=== PATIENT | female | born 1965 | race Caucasian/White ===

== ENCOUNTER 2022-08-18 13:52 | Outpatient (REF) | payer OTHER, SELFPAY ==
--- NOTE | ~2022-08-18 | XR_ITS ---
EXAMINATION: XR ABDOMEN KUB CLINICAL INDICATION: Abdominal pain COMPARISON: None TECHNIQUE: AP view of the abdomen. FINDINGS: The bowel gas pattern is normal with no evidence of ileus or obstruction. No unusual soft tissue calcifications are noted. The bones are unremarkable. XR/XR KUB IMPRESSION: Unremarkable examination.
[2022-08-18 16:30] LABS: MANUAL DIFF FLAG NO
[2022-08-18 16:35] LABS: Basophils Absolute Auto 0.1 X10*3/uL (0.0-0.2); Basophils Percent Auto 0.6 % (0-2); Eosinophils Absolute Auto 0.2 X10*3/uL (0.0-0.4); Eosinophils Percent Auto 2.2 % (0-4); Hematocrit 39.4 % (37.0-47.0); Hemoglobin 12.4 g/dl (12.0-16.0); Imm Gran Abs Auto 0.03 X10*3/uL (0.00-0.03); Imm Gran Pct Auto 0.3 % (0.0-0.4); Lymphocytes Percent Auto 19.7 % (20-40); Mean Corpuscular HGB Conc 31.5 g/dl (31.0-35.0); Mean Corpuscular Hemoglobin 25.6 pg (27.0-33.0); Mean Corpuscular Volume 81.4 fL (80.0-98.0); Mean Platelet Volume 9.5 fL (9.4-12.3); Monocytes Absolute Auto 0.7 X10*3/uL (0.1-1.2); Monocytes Percent Auto 7.1 % (2-11); Neutrophils Absolute Auto 7.3 x10*3/uL (2.0-8.3); Neutrophils Percent Auto 70.1 % (45-73); Platelet Count 426 X10*3/uL (160-400); Red Blood Count 4.84 X10*6/uL (4.20-5.50); Red Cell Distribution Width 15.1 % (11.0-16.0); White Blood Count 10.4 X10*3/uL (4.8-10.8)
[2022-08-18 16:46] LABS: Alanine Aminotransferase 11 U/L (0-31); Albumin Level 3.7 g/dL (3.5-5.0); Alkaline Phosphatase 110 U/L (39-117); Anion Gap 15 (12-20); Aspartate Amino Transferase 18 U/L (5-31); Bilirubin Direct 0.2 mg/dL (0.0-0.5); Bilirubin Total 0.5 mg/dL (0.0-1.0); Blood Urea Nitrogen 7 mg/dL (9-16); Carbon Dioxide 25 mmol/L (22-29); Chloride 99 mmol/L (96-108); Estimated Glomerular Filt Rate > 60; Glucose Random 107 mg/dL (60-115); Potassium 4.1 mmol/L (3.3-5.1); Sodium 135 mmol/L (135-145); Total Protein 6.6 g/dL (6.5-8.0)
== END 2022-08-18 13:53 | disposition home or self-care (01) ==
LOC: HO.HMGCX 13:52
PROVIDERS: Visit Provider Nurse Practitioner Family
DX: R10.9 Unspecified abdominal pain (principal)
CPT/HCPCS: 36415; 74018; 80048; 80076; 85025

== ENCOUNTER 2022-08-27 17:41 | Observation (INO) | payer OTHER, SELFPAY ==
--- NOTE | ~2022-08-27 | US_ITS ---
EXAMINATION: ULTRASOUND-GUIDED PARACENTESIS CLINICAL INFORMATION: Ascites. Peritoneal disease. COMPARISON: Previous CT of the abdomen and pelvis 08/28/2022 and MRI from earlier the same day TECHNIQUE: Procedure and risks and benefits including bleeding, infection and low blood pressure were discussed with the patient and informed consent was obtained. The right lower quadrant was prepped and draped in the usual sterile fashion. The skin and soft tissues were anesthetized with 1% lidocaine plain. Using ultrasound guidance and a 5 Amharic rapid centesis catheter, access to the ascitic fluid was obtained. 3.3 L of clear yellow fluid was removed. Diagnostic specimen was sent for cytology. FINDINGS: There is a moderate amount of ascites. US/US paracentesis abd w/image IMPRESSION: Ultrasound-guided paracentesis.
--- NOTE | ~2022-08-27 | CT_ITS ---
EXAMINATION: CT ABDOMEN AND PELVIS WITH CONTRAST CLINICAL INFORMATION: Left lower quadrant pain. Rule out diverticulitis. COMPARISON: None TECHNIQUE: Multidetector volumetric images were obtained from the superior aspect of the liver through the pubic symphysis following administration of 60 mL of Omnipaque 350 intravenous contrast. Sagittal and coronal reformatted images were obtained on the technologist's workstation. Oral contrast: No This CT examination was performed using dose optimization techniques as appropriate, variously including the following: *Automated exposure control *Adjustment of mA and/or kV according to patient size (this includes techniques or standardized protocols for targeted exams where dose is matched to indication/reason for exam; i.e. extremities or head) *Use of iterative reconstruction technique DLP: 753 mGy-cm FINDINGS: LUNG BASES: Partial visualization is made of a small left pleural effusion and mild left base atelectasis no suspicious osseous lesions noted.. Partial visualization is made of a small pericardial fluid collection measuring 5 mm in width. LIVER, GALLBLADDER, AND BILIARY TREE: The hepatic capsular contour and size are normal in appearance. No focal lesions of the liver identified. The gallbladder is unremarkable with no evidence of radiopaque gallstones, gallbladder wall thickening, or obvious pericholecystic inflammatory changes. PANCREAS: Unremarkable. SPLEEN: Unremarkable. ADRENAL GLANDS: A 4 mm low-density nodule (5 Hounsfield units) is associated with the right adrenal gland and is most consistent with a benign adenoma requiring no additional imaging follow-up. KIDNEYS AND URETERS: The kidneys are normal in size, shape, and attenuation. No hydronephrosis, , or calculi seen. No perinephric stranding. Minimal prominence of the left ureter to maximum width of 4 mm is present and may represent mild distention related to marked distention of the urinary bladder. BLADDER: Marked distention. GASTROINTESTINAL TRACT: Moderate ascites is identified in all 4 abdominal quadrants. Multifocal nodularity and thickening of the omentum is present and is suspicious for omental carcinomatosis. No intestinal dilatation or mural thickening noted. Nodular foci are noted along the peritoneal margins (for example series 3 image 31) within the left upper abdominal quadrant) suspicious for peritoneal carcinomatosis. The particular lesion noted in the left upper abdominal quadrant indicated by the series/image above measures 2.7 cm in diameter. ABDOMINAL WALL: No significant hernia is appreciated. LYMPH NODES: Normal. VASCULAR: Unremarkable. PELVIC VISCERA: The ovaries are indistinctly visualized. Soft tissue density is present in the right adnexal region contiguous with apparent omental carcinomatosis obscuring visualization of the margins of the right ovary. No lesions of the uterus identified. Left ovary is not discretely visualized. Soft tissue density over an approximate 3 cm diameter region is present in the left adnexal region. OSSEOUS STRUCTURES: Unremarkable. CT/CT abdomen pelvis w IV con IMPRESSION: *Findings suspicious for ovarian cancer. Omental and peritoneal carcinomatosis is present along with ascites which is suspicious for malignant ascites. Omental carcinomatosis extends contiguously to the right adnexal region obscuring visualization of the right ovary but is suspicious for a right ovarian neoplasm. The left ovary is not well visualized and soft tissue density is present in the left adnexal region over an approximate 3 cm diameter region which could represent tumor. A peritoneal metastasis measuring 2.7 cm is present in the left upper abdominal quadrant which may therefore meet criteria for stage IIIc staging. As clinically indicated, consider further evaluation with pelvic MRI to more specifically assess the ovaries which are not distinctly visualized on the current examination. *Partially visualized small left pleural effusion and left lower lobe atelectasis. *Partially visualized small pericardial effusion measuring 5 mm in width.
--- NOTE | ~2022-08-27 | XR_ITS ---
EXAMINATION: XR CHEST CLINICAL INFORMATION: Ovarian cancer, evaluate for metastases. COMPARISON: CT scan of the abdomen and pelvis 08/28/2022. Chest x-ray August 2019. TECHNIQUE: Frontal view of the chest was obtained. FINDINGS: There is opacification of the left base consistent with pleural effusion and compressive atelectasis as seen on prior CT. The lungs are otherwise clear. The cardiomediastinal silhouette is unremarkable. The bone and soft tissues are unremarkable. XR/XR chest 1V IMPRESSION: Left pleural effusion and left basilar opacity consistent with compressive atelectasis, unchanged compared with the recent CT 08/28/2022. The lungs are otherwise clear.
--- NOTE | ~2022-08-27 | MR_ITS ---
EXAMINATION: MR PELVIS WITHOUT AND WITH CONTRAST CLINICAL INFORMATION: Rule out ovarian cancer. COMPARISON: Previous CT of the abdomen and pelvis 08/28/2022. TECHNIQUE: Sagittal, axial and coronal sequences through the pelvis with and without contrast. The patient received 7.5 mL intravenous Gadavist contrast. FINDINGS: The uterus measures 6 x 2 x 3 cm in sagittal AP and transverse dimension. No focal uterine lesion. Endometrial thickness is normal measuring 2 mm. The junctional zone does not appear thickened. The cervix is normal. Both adnexa appear abnormal. There is question of identification of the right in the high right pelvis posterior to the cecum and anterior to the right psoas muscle, for example axial T2 image 5 series 6 and coronal T2 image 13 series 7. There is question identification of the left adnexa in the left lateral pelvis adjacent to the sidewall axial T2 image 11 series 6 and coronal T2 image 16 series 7. The bladder is normal. There is a moderate to large amount of ascites. There is extensive peritoneal disease with large solid enhancing peritoneal masses and some cystic areas. This involves the greater omentum, extends into the bilateral lower quadrants and pelvis. This is seen in the anterior and posterior cul-de-sac and bilateral pelvic sidewall left greater than right. There is peritoneal disease involving the sigmoid colon in the pelvis. There are no dilated loops of bowel to suggest obstruction. There is mild diverticulosis of the colon. No hernia. No hernia. No adenopathy. Vascular structures are normal. Bright T1 and T2 sequence lesion in the S1 vertebral body, question representing a hemangioma. No other focal bone lesion. MR/MR pelvis wo/w con IMPRESSION: Extensive peritoneal disease in the lower abdomen and pelvis and moderate to large amount of ascites suggestive of malignancy. This most likely represents ovarian or primary peritoneal cancer. Omental mass would be amenable to percutaneous biopsy clinically indicated.
--- NOTE | 2022-08-27 18:31 | ED_ITS ---
HPI - Abdominal Pain General Chief Complaint: Abdominal Pain <DIANE Miller Last Filed: 08/28/22 14:19> Stated Complaint: Abdominal pain <DIANE Miller - Last Filed: 08/28/22 14:19> Time Seen by Provider: 08/27/22 23:17 <DIANE Miller - Last Filed: 08/28/22 14:19> Source: patient and old records reviewed <Ashely Gordon DO - Last Filed: 08/28/22 02:30> Mode of arrival: ambulatory <Ashely Gordon DO - Last Filed: 08/28/22 02:30> Limitations: no limitations <Ashely Gordon DO - Last Filed: 08/28/22 02:30> History of Present Illness HPI narrative: abdominal pain for over 10 days worsening no response to cipro starting 08/18 - now cannot walk, loose mucousy stools, no travel, food exposure, no previous antibiotics, has had normal colonoscopy in the past, this has never happened before. She notes when she walks it hurts so bad she cannot even stand up straight. She recently lost 26lbs but thinks it was due to her trulicity <Ashely Gordon DO - Last Filed: 08/28/22 02:30> MD elicited complaint: abdominal pain <Ashely Gordon DO - Last Filed: 08/28/22 02:30> Pertinent past history: none <Ashely Gordon DO - Last Filed: 08/28/22 02:30> Onset (ago): day(s) (10+) <Ashely Gordon DO - Last Filed: 08/28/22 02:30> Pain Consistency: constant <Ashely Gordon DO - Last Filed: 08/28/22 02:30> Location: diffuse <Ashely Gordon DO - Last Filed: 08/28/22 02:30> Severity: severe <Ashely Gordon DO - Last Filed: 08/28/22 02:30> Quality: stabbing <Ashely Gordon DO - Last Filed: 08/28/22 02:30> Radiation: none <Ashely Gordon DO - Last Filed: 08/28/22 02:30> Migration to: no migration <Ashely Gordon DO - Last Filed: 08/28/22 02:30> Exacerbating factors: movement <Ashely Gordon DO - Last Filed: 08/28/22 02:30> Relieving factors: nothing <Ashely Gordon DO - Last Filed: 08/28/22 02:30> Associated symptoms: nausea and diarrhea <Ashely Gordon DO - Last Filed: 08/28/22 02:30> Treatments prior to arrival: other (was on cipro no response) <Ashely Gordon DO - Last Filed: 08/28/22 02:30> Related Data Home Medications: Home Medications Medication Instructions Recorded Confirmed albuterol sulfate 90 mcg/actuation 2 puff inhalation Q4H PRN Wheezing 08/18/22 08/28/22 aerosol inhaler dulaglutide 0.75 mg/0.5 mL 0.75 mg subcut GRANDE@1800 08/18/22 08/28/22 subcutaneous pen injector (Trulicity) <DIANE Miller Last Filed: 08/28/22 14:19> Allergies/Adverse Reactions: Allergies Allergy/AdvReac Type Severity Reaction Status Date / Time azithromycin Allergy Mild Shortness Verified 08/18/22 13:02 of Breath <DIANE Miller Last Filed: 08/28/22 14:19> Review of Systems Review of Systems Constitutional : pos Weight loss, No Fever, No Chills ENT/Mouth : No sore throat, No Rhinorrhea Eyes: No Swelling, No Redness Cardiovascular : No Chest Pain, No SOB, NoEdema Respiratory : No Cough, No Sputum, No Wheezing Gastrointestinal : Positive Nausea, no Vomiting, positive Diarrhea, positive abdominal Pain, No Hematochezia, No Melena Genitourinary : No Dysuria, No Urinary Frequency, No Hematuria, No Urgency Musculoskeletal : No joint pain, No Myalgias, No Joint Swelling Skin : No Skin Lesions, No rash Neuro : No Weakness, No Numbness, No Dizziness, No Headache Psych : No Anxiety/Panic, No Depression Heme/Lymph: No Bruising, No Lymphadenopathy Endocrine : No Polyuria, No Polydipsia All other systems reviewed and are negative. <Ashely Gordon DO - Last Filed: 08/28/22 02:30> [facility] Past Medical History Attestation statement: The following information was validated with the patient. <Ashely Gordon DO - Last Filed: 08/28/22 02:30> Medical History: Medical History Asthma Diabetes <DIANE Miller - Last Filed: 08/28/22 14:19> Surgical History: Surgical History S/P appendectomy <DIANE Miller - Last Filed: 08/28/22 14:19> Social History Social History: Social History Patient Tobacco Use Status: Never used Tobacco Smoked in Last 30 Days: No Use of substances other than those prescribed or required for medical reasons: No Advance Directives: Yes Advance Directives Information Provided: No Advance Directives on File: No <DIANE Miller - Last Filed: 08/28/22 14:19> Physical Exam ED Vital Signs: Vital Signs - 24 hr 08/27/22 18:32 08/28/22 00:00 Temperature 98.1 F 98.2 F Pulse Rate 119 H 104 H Respiratory Rate 18 13 Blood Pressure 142/79 H 109/56 L Pulse Oximetry 97 94 Oxygen Delivery Method Room Air Room Air BMI result Body Mass Index 28.3 <DIANE Miller - Last Filed: 08/28/22 14:19> Vital Signs - 24 hr 08/27/22 18:32 08/28/22 00:00 Temperature 98.1 F 98.2 F Pulse Rate 119 H 104 H Respiratory Rate 18 13 Blood Pressure 142/79 H 109/56 L Pulse Oximetry 97 94 Oxygen Delivery Method Room Air Room Air BMI result Body Mass Index 28.3 <Ashely EvanDO - Last Filed: 08/28/22 02:30> Appearance: Alert. Oriented X3. No acute distress. Eyes: Pupils equal, round and reactive to light. ENT: Pharynx normal. Neck: Normal inspection. Neck supple. CVS: Normal heart rate and rhythm. Pulses normal. Respiratory: No respiratory distress. Breath sounds normal. Abdomen: Soft but mild distention, no rebound or guarding, moderate ttp in lower abdomen Skin: Skin warm and dry. Normal skin color. Normal skin turgor. Extremities: No lower extremity edema. No calf ttp Neuro: Oriented X 3. No motor deficit. No sensory deficit. <Ashely Gordon DO - Last Filed: 08/28/22 02:30> Course Course Course Narrative: RME 56 year old female hx of asthma, diabetes, gerd presents to the ED w/ complaints of LLQ pain, nausea x1 week. Was seen on [facility] walk in last week. PE: pain throughout abd in all 4 quadrants worse in LLQ, w/ normal BS. Plan- labs, urine, scan <DIANE Miller - Last Filed: 08/28/22 14:19> Reevaluation(s) Reevaluation #1: I went to tell the patient about the CT scan and she states she was not surprised and in fact asked me if it was cancer as she has not been feeling well and just new something was off with her body. I answered all her questions as best I could and repeated her pain medications. no urinary symptoms will wait til culture <DO Juan Carlos Alamo Last Filed: 08/28/22 02:30> Medical Decision Making Medical Decision Making MDM Narrative: 56 yo female with hx of DM, asthma here with c/o lower abdominal pain on cipro for possible colitis starting 08/18 she notes nausea, worsening pain and distention at this time will need labs, IVF, IV morphine for pain - concern is for colitis, diverticulitis/abscess. CT scan for infection/obstruction ordered. Likely admit. Dispo per results and findings. <DO Juan Carlos Alamo Last Filed: 08/28/22 02:30> Differential Diagnoses: Differential diagnosis (diverticulitis, colitis, abscess, SBO, renal colic, cystitis, mass) <DO Juan Carlos Alamo Last Filed: 08/28/22 02:30> Consideration of admission/observation: Consideration of Admission/Observation (will admit the patient for pain control and possible pelvic MRI - consult in AM with oncology. Patient still with pain repeat morphine ordered) <DO Juan Carlos Alamo Last Filed: 08/28/22 02:30> Discussion of management with other physician/healthcare provider/other source (e.g., hospitalist, hearing consultant, behavioral health): Discussion w/other physician/healthcare provider Management of the patient was discussed with: Hospitalist My interpretation is will admit for pain control and possible consults given new diagnosis <Ashely Gordon DO - Last Filed: 08/28/22 02:30> Lab Attestation: I reviewed the patient's lab results. <Ahsely Gordon DO - Last Filed: 08/28/22 02:30> Independent interpretation of EKG, rhythm strip, radiology study: Independent interp EKG,rhythm strip, radiology study I performed an independent interpretation of the: CT Scan My interpretation is ascites noted on initial review and L sided pleural effusion <Ashely Gordon, DO - Last Filed: 08/28/22 02:30> Non-ED record review: Review of External (Non-ED) Record External record reviewed:: Office record, Outpatient record, Prior outpatient labs and Prior outpatient radiology <Ashely Gordon DO - Last Filed: 08/28/22 02:30> Medications Administered Generic Name Dose Route Start Last Admin Trade Name Freq PRN Reason Stop Dose Admin Enoxaparin Sodium 40 mg 08/28/22 09:00 08/28/22 10:12 Enoxaparin Sodium 40 Mg/0.4 Ml Syringe SUBCUT 40 mg Q24H JAY JAY Administration Lactated Ringer's 1,000 mls @ 100 mls/hr 08/28/22 02:00 08/28/22 13:12 Lr IVCONT 100 mls/hr .Q10H JAY JAY Administration Ceftriaxone Sodium 1 gm/ 50 mls @ 100 mls/hr 08/28/22 03:45 08/28/22 04:53 Sodium Chloride IV Infused Q24H JAY JAY Infusion Insulin Human Lispro 0 unit 08/28/22 07:30 08/28/22 12:47 Insulin Lispro 100 Unit/Ml 3 Ml Vial SUBCUT Not Given QIDACHS JAY JAY Protocol Morphine Sulfate 1 mg 08/28/22 11:45 08/28/22 12:40 Morphine Sulfate 2 Mg/Ml Cartridge IVPUSH 1 mg Q4H PRN Administration Pain, Mild (Pain Scale 1-3) Protocol Sodium Chloride 3 ml 08/28/22 08:00 08/28/22 07:58 0.9 % Sodium Chloride Flush 3 Ml Syringe IVFLUSH Not Given QSHIFT JAY JAY Discontinued Medications Generic Name Dose Route Start Last Admin Trade Name Freq PRN Reason Stop Dose Admin Hydromorphone HCl 0.5 mg 08/28/22 05:08 08/28/22 05:22 Hydromorphone Hcl 0.5 Mg/0.5 Ml Syringe IVPUSH 08/28/22 05:09 0.5 mg ONCE ONE Administration Protocol Lactated Ringer's 1,000 mls @ 999 mls/hr 08/27/22 23:30 08/28/22 02:54 Lr IV 08/28/22 00:30 Infused .Q1H1M JAY JAY Infusion Iohexol 85 ml 08/28/22 00:52 08/28/22 00:52 Iohexol 350 Mg/Ml 100 Ml Infus..Btl IV 08/28/22 00:53 85 ml ONCE ONE Administration Morphine Sulfate 4 mg 08/27/22 23:27 08/27/22 23:55 Morphine Sulfate 4 Mg/Ml Cartridge IVPUSH 08/27/22 23:28 4 mg ONCE ONE Administration Protocol Morphine Sulfate 4 mg 08/28/22 01:49 08/28/22 02:35 Morphine Sulfate 4 Mg/Ml Cartridge IVPUSH 08/28/22 01:50 4 mg ONCE ONE Administration Protocol Ondansetron HCl 4 mg 08/27/22 23:27 08/27/22 23:55 Ondansetron Hcl 4 Mg/2 Ml Vial IVPUSH 08/27/22 23:28 4 mg ONCE ONE Administration <DIANE Miller - Last Filed: 08/28/22 14:19> Medications Administered Generic Name Dose Route Start Last Admin Trade Name Freq PRN Reason Stop Dose Admin Enoxaparin Sodium 40 mg 08/28/22 09:00 08/28/22 10:12 Enoxaparin Sodium 40 Mg/0.4 Ml Syringe SUBCUT 40 mg Q24H JAY JAY Administration Lactated Ringer's 1,000 mls @ 100 mls/hr 08/28/22 02:00 08/28/22 13:12 Lr IVCONT 100 mls/hr .Q10H JAY JAY Administration Ceftriaxone Sodium 1 gm/ 50 mls @ 100 mls/hr 08/28/22 03:45 08/28/22 04:53 Sodium Chloride IV Infused Q24H JAY JAY Infusion Insulin Human Lispro 0 unit 08/28/22 07:30 08/28/22 12:47 Insulin Lispro 100 Unit/Ml 3 Ml Vial SUBCUT Not Given QIDACHS [facility] Protocol Morphine Sulfate 1 mg 08/28/22 11:45 08/28/22 12:40 Morphine Sulfate 2 Mg/Ml Cartridge IVPUSH 1 mg Q4H PRN Administration Pain, Mild (Pain Scale 1-3) Protocol Sodium Chloride 3 ml 08/28/22 08:00 08/28/22 07:58 0.9 % Sodium Chloride Flush 3 Ml Syringe IVFLUSH Not Given QSHIFT [facility] Discontinued Medications Generic Name Dose Route Start Last Admin Trade Name Freq PRN Reason Stop Dose Admin Hydromorphone HCl 0.5 mg 08/28/22 05:08 08/28/22 05:22 Hydromorphone Hcl 0.5 Mg/0.5 Ml Syringe IVPUSH 08/28/22 05:09 0.5 mg ONCE ONE Administration Protocol Lactated Ringer's 1,000 mls @ 999 mls/hr 08/27/22 23:30 08/28/22 02:54 Lr IV 08/28/22 00:30 Infused .Q1H1M [facility] Infusion Iohexol 85 ml 08/28/22 00:52 08/28/22 00:52 Iohexol 350 Mg/Ml 100 Ml Infus..Btl IV 08/28/22 00:53 85 ml ONCE ONE Administration Morphine Sulfate 4 mg 08/27/22 23:27 08/27/22 23:55 Morphine Sulfate 4 Mg/Ml Cartridge IVPUSH 08/27/22 23:28 4 mg ONCE ONE Administration Protocol Morphine Sulfate 4 mg 08/28/22 01:49 08/28/22 02:35 Morphine Sulfate 4 Mg/Ml Cartridge IVPUSH 08/28/22 01:50 4 mg ONCE ONE Administration Protocol Ondansetron HCl 4 mg 08/27/22 23:27 08/27/22 23:55 Ondansetron Hcl 4 Mg/2 Ml Vial IVPUSH 08/27/22 23:28 4 mg ONCE ONE Administration IV morphine for pain <Ashely Gordon DO - Last Filed: 08/28/22 02:30> Discharge Plan Discharge Clinical Impression: Peritoneal carcinomatosis Abdominal pain Qualifiers: Abdominal location: generalized Qualified Code(s): R10.84 - Generalized abdominal pain <DIANE Miller - Last Filed: 08/28/22 14:19> Patient Disposition: Admitted As Inpatient <DIANE Miller - Last Filed: 08/28/22 14:19>
[2022-08-27 18:32] VITALS: BP 142/79; PULSE 119; RESP 18; TEMP 36.7; O2SAT 97; BMI 28.3
[2022-08-27 18:51] LABS: MANUAL DIFF FLAG NO
[2022-08-27 18:57] LABS: Appearance Urine Clear; Color Urine Yellow; Glucose Urine UA Negative (Negative); Leukocyte Esterase Urine Moderate (2+) (Negative); Nitrite Urine Negative (Negative); UMIC TRIGGER UACC YES; Urine Blood Negative (Negative); Urine Ketones 40 mg/dL (Negative); Urine Protein Trace mg/dL (Neg-Trace)
[2022-08-27 18:57] LABS: Basophils Absolute Auto 0.1 X10*3/uL (0.0-0.2); Basophils Percent Auto 0.5 % (0-2); Eosinophils Absolute Auto 0.2 X10*3/uL (0.0-0.4); Eosinophils Percent Auto 1.5 % (0-4); Hematocrit 36.8 % (37.0-47.0); Hemoglobin 11.9 g/dl (12.0-16.0); Imm Gran Abs Auto 0.05 X10*3/uL (0.00-0.03); Imm Gran Pct Auto 0.4 % (0.0-0.4); Lymphocytes Absolute Auto 2.1 X10*3/uL (1.2-4.9); Lymphocytes Percent Auto 15.6 % (20-40); Mean Corpuscular HGB Conc 32.3 g/dl (31.0-35.0); Mean Corpuscular Hemoglobin 25.2 pg (27.0-33.0); Mean Platelet Volume 8.7 fL (9.4-12.3); Monocytes Absolute Auto 1.1 X10*3/uL (0.1-1.2); Monocytes Percent Auto 7.8 % (2-11); Neutrophils Absolute Auto 10.1 x10*3/uL (2.0-8.3); Neutrophils Percent Auto 74.2 % (45-73); Platelet Count 420 X10*3/uL (160-400); Red Blood Count 4.72 X10*6/uL (4.20-5.50); Red Cell Distribution Width 15.1 % (11.0-16.0); White Blood Count 13.6 X10*3/uL (4.8-10.8)
[2022-08-27 19:05] LABS: Bacteria Urine 1+ (None Seen); Hyaline Casts Urine 0-2 /LPF (0-2); RBC Urine 0-2 /HPF (0-2); UACC Culture Trigger YES; WBC Urine 21-50 /HPF (0-5)
[2022-08-27 19:11] LABS: Alanine Aminotransferase 11 U/L (0-31); Albumin Level 3.4 g/dL (3.5-5.0); Alkaline Phosphatase 106 U/L (39-117); Anion Gap 13 (12-20); Aspartate Amino Transferase 18 U/L (5-31); Bilirubin Total 0.7 mg/dL (0.0-1.0); Blood Urea Nitrogen 8 mg/dL (9-16); Calcium 8.5 mg/dL (8.4-10.2); Carbon Dioxide 25 mmol/L (22-29); Chloride 96 mmol/L (96-108); Creatinine Clr Calc Pharmacy 84.6; Estimated Glomerular Filt Rate > 60; Glucose Random 116 mg/dL (60-115); Potassium 3.9 mmol/L (3.3-5.1); Sodium 130 mmol/L (135-145); Total Protein 6.1 g/dL (6.5-8.0)
[2022-08-27 19:12] LABS: Lipase 16 U/L (8-78)
[2022-08-27] MEDS: ondansetron HCL 4 MG/2 ML VIAL IVPUSH (23:55)
[2022-08-27] MEDS: Morphine Sulfate 4 MG/ML CARTRIDGE IVPUSH (23:55)
[2022-08-28] VITALS (8 sets, daily range): BP systolic 102–121; BP diastolic 56–66; PULSE 88–109; RESP 13–18; TEMP 36.1–36.8; O2SAT 93–98
[2022-08-28 00:03] LABS: Lactic Acid 0.8 mmol/L (0.5-2.0)
[2022-08-28] MEDS: Lactated Ringers 1,000 ML 999 ML IV (00:06)
[2022-08-28] MEDS: iohexoL 350 MG/ML 100 ML INFUS..BTL 85 ML IV (00:52)
--- NOTE | 2022-08-28 02:00 | PC.NURSE ---
Assumed care of patient.
--- NOTE | 2022-08-28 02:16 | PC.NURSE ---
Patient resting quietly while watching tv. No apparent distress.
[2022-08-28] MEDS: Morphine Sulfate 4 MG/ML CARTRIDGE IVPUSH (02:35)
[2022-08-28] MEDS: Lactated Ringers 1,000 ML 100 ML IVCONT ×2 (02:35→13:12)
[2022-08-28 02:59] LABS: COVID-19 Test Negative (Negative); IDNOW Serial# BCCEAD1C
--- NOTE | 2022-08-28 03:34 | PM.IMHP ---
History of Present Illness Date of Service: 08/28/22 Chief Complaint: Abdominal pain This is a 56-year-old female with pertinent history of gsb-kzkyxsb-pjrvywiyy diabetes mellitus, asthma presents to the emergency department for evaluation of abdominal discomfort. Patient states her abdominal pain is generalized and started about 2 weeks ago. Patient states she has had reduced p.o. intake and difficulty with ambulation due to the pain. Endorses associated nausea and nonbloody emesis. No relieving factors. Also lost 26 lb in the last 4 months. No personal history of cancer. No tobacco smoking. Does endorse urinary hesitancy. She denies fever, chills, chest discomfort, palpitations, shortness of breath, changes in bowel habits. In the emergency department, imaging concerning for ovarian cancer with omental and peritoneal carcinomatosis. Review of Systems Constitutional: Constitutional: Reports fatigue, Reports lethargy, Reports malaise and Reports poor appetite Cardiovascular: Cardiovascular: Reports no additional cardiovascular complaints Respiratory: Respiratory: Reports no additional respiratory complaints Gastrointestinal: Gastrointestinal: Reports abdominal pain, Reports bloating, Reports early satiety and Reports nausea Genitourinary: Genitourinary: Reports urinary hesitancy Endocrine: Endocrine: Reports fatigue [facility] Medical History Asthma Diabetes Functional capacity: independent ambulation Pertinent family history: Breast cancer in sister Surgical History S/P appendectomy Social History Patient Tobacco Use Status: Never used Tobacco Smoked in Last 30 Days: No Use of substances other than those prescribed or required for medical reasons: No Advance Directives: Yes Advance Directives Information Provided: No Advance Directives on File: No Meds Allergies Allergy/AdvReac Type Severity Reaction Status Date / Time azithromycin Allergy Mild Shortness Verified 08/18/22 13:02 of Breath Active Medications: Current Medications Acetaminophen (Acetaminophen 325 Mg Tablet) 650 mg PO Q6H PRN PRN Reason: Pain, Mild (Pain Scale 1-3) Enoxaparin Sodium (Enoxaparin Sodium 40 Mg/0.4 Ml Syringe) 40 mg SUBCUT Q24H [facility] Lactated Ringer's (Lr) 1,000 mls @ 100 mls/hr IVCONT .Q10H [facility] Last Admin: 08/28/22 02:35 Dose: 100 mls/hr Melatonin (Melatonin 3 Mg Tablet) 6 mg PO BEDTIME PRN PRN Reason: Insomnia Ondansetron HCl (Ondansetron Hcl 4 Mg/2 Ml Vial) 4 mg IVPUSH Q8H PRN PRN Reason: Nausea and Vomiting Pharmacy Consult (Consult Rx Perform Med Rec) 1 each MISCELLANE ONCE PRN PRN Reason: Consult order Sodium Chloride (0.9 % Sodium Chloride Flush 3 Ml Syringe) 3 ml IVFLUSH QSHIFT [facility] Home Medications Medication Instructions Recorded Confirmed Last Taken Type albuterol sulfate 90 mcg/actuation 0 mcg inhalation 08/18/22 Unknown History aerosol inhaler dulaglutide 0.75 mg/0.5 mL 0.75 mg subcut QWEEK 08/18/22 Unknown [facility] Physical Exam Vital Signs and Narrative: Vital Signs: Last Vital Signs Temp 98.2 F 08/28/22 00:00 Pulse 104 H 08/28/22 00:00 Resp 13 08/28/22 00:00 BP 109/56 L 08/28/22 00:00 Pulse Ox 94 08/28/22 00:00 O2 Del Method 08/28/22 00:00 BMI result Body Mass Index 28.3 Middle-aged female lying in bed in no distress Neck supple, no JVD Tachycardic with regular rhythm, S1-S2 heard Regular breath sounds bilaterally, no wheezing or crackles appreciated Abdomen distended with generalized tenderness with deep palpation, no guarding, no rigidity, no rebound tenderness Patient is awake, alert and oriented to self, place, time and person ; no focal motor deficit Psych: Normal mood No pedal edema Results Labs CBC and Chem 7: 08/27/22 18:45 08/27/22 18:45 Labs: Laboratory Results - last 24 hr 08/27/22 08/27/22 08/27/22 18:45 18:45 18:45 MCV 78.0 L MCH 25.2 L MCHC 32.3 RDW 15.1 Plt Count 420 H MPV 8.7 L Immature Gran % (Auto) 0.4 Neut % (Auto) 74.2 H Lymph % (Auto) 15.6 L [place] % (Auto) 7.8 Eos % (Auto) 1.5 Baso % (Auto) 0.5 Lymph # (Auto) 2.1 [place] # (Auto) 1.1 Eos # (Auto) 0.2 Baso # (Auto) 0.1 Abs Immat Gran (auto) 0.05 H Absolute Neuts (auto) 10.1 H Absolute Nucleated RBC 0.000 Nucleated RBC % (auto) 0.0 Anion Gap 13 Estim Creat Clear Calc 84.6 Estimated GFR > 60 Random Glucose 116 H Lactic Acid Calcium 8.5 Total Bilirubin 0.7 AST 18 ALT 11 Alkaline Phosphatase 106 Total Protein 6.1 L Albumin 3.4 L Lipase 16 Urine Color Urine Appearance Urine pH Ur Specific [place] Urine Protein Urine Glucose (UA) Urine Ketones Urine Blood Urine Nitrite Ur Leukocyte Esterase Urine RBC Urine WBC Ur Squamous Epith Cells Urine Bacteria Hyaline Casts COVID-19 (TRACY) COVID-19 Clin Com 08/27/22 08/27/22 08/28/22 18:46 23:47 02:39 MCV MCH MCHC RDW Plt Count MPV Immature Gran % (Auto) Neut % (Auto) Lymph % (Auto) [place] % (Auto) Eos % (Auto) Baso % (Auto) Lymph # (Auto) [place] # (Auto) Eos # (Auto) Baso # (Auto) Abs Immat Gran (auto) Absolute Neuts (auto) Absolute Nucleated RBC Nucleated RBC % (auto) Anion Gap Estim Creat Clear Calc Estimated GFR Random Glucose Lactic Acid 0.8 Calcium Total Bilirubin AST ALT Alkaline Phosphatase Total Protein Albumin Lipase Urine Color Yellow Urine Appearance Clear Urine pH 6.0 Ur Specific [place] 1.010 Urine Protein Trace Urine Glucose (UA) Negative Urine Ketones 40 Urine Blood Negative Urine Nitrite Negative Ur Leukocyte Esterase Moderate (2+) H Urine RBC 0-2 Urine WBC 21-50 H Ur Squamous Epith Cells 6-10 Urine Bacteria 1+ Hyaline Casts 0-2 COVID-19 (TRACY) Negative COVID-19 Clin Com See Note Imaging Radiologist's Impressions: Impressions Abdomen/Pelvis CT 08/28/22 00:45 IMPRESSION: *Findings suspicious for ovarian cancer. Omental and peritoneal carcinomatosis is present along with ascites which is suspicious for malignant ascites. Omental carcinomatosis extends contiguously to the right adnexal region obscuring visualization of the right ovary but is suspicious for a right ovarian neoplasm. The left ovary is not well visualized and soft tissue density is present in the left adnexal region over an approximate 3 cm diameter region which could represent tumor. A peritoneal metastasis measuring 2.7 cm is present in the left upper abdominal quadrant which may therefore meet criteria for stage IIIc staging. As clinically indicated, consider further evaluation with pelvic MRI to more specifically assess the ovaries which are not distinctly visualized on the current examination. *Partially visualized small left pleural effusion and left lower lobe atelectasis. *Partially visualized small pericardial effusion measuring 5 mm in width. Assessment and Plan (1) Abdominal pain: Qualifiers: Abdominal location: generalized Qualified Code(s): R10.84 - Generalized abdominal pain Status: Acute (2) Peritoneal carcinomatosis: Status: Acute (3) Ovarian cancer: Status: Acute (4) Asthma: Status: Acute (5) Diabetes: Status: Acute Plan This is a 56-year-old female with pertinent history of bcv-nymwyhh-yfryprtxy diabetes mellitus, asthma presents to the emergency department for evaluation of abdominal discomfort. #. Imaging concerning for ovarian cancer with omental and peritoneal carcinomatosis: Will admit for pain control with IV opioids p.r.n.. Consulting Oncology to establish care. Obtaining MRI pelvis to further delineate the anatomy. #. Acute UTI: Initiating IV Rocephin empirically while in the hospital. Follow urine culture #. Asthma: DuoNebs p.r.n. #. Usj-pdhxmoy-cxrxeomxb diabetes mellitus: On Trulicity. Initiating Accu-Cheks with sliding scale insulin Med rec pending DVT prophylaxis: Lovenox 40 mg any Full code Diabetic diet Time Spent With Patient Time: Total time managing care of this patient today ____ minutes. Quality Stroke Does the patient have a stroke diagnosis?: No VTE Prior VTE?: No VTE Risk Level:: Medical - moderate - high VTE Device Contraindication: Treatment Not Indicated VTE Drug Contraindication: N/A - Med Ordered
[2022-08-28] MEDS: cefTRIAXone sodium 1 GM in 0.9 % Sodium Chloride 50 ML IV (04:09)
--- NOTE | 2022-08-28 04:15 | PC.NURSE ---
Administered ceftriaxone per MAR.
--- NOTE | 2022-08-28 04:18 | PC.NURSE ---
Pain assessed. Patient rates pain at a 7/10. States morphine had some effectiveness as this is the 'first time in a long time her stomach feels normal'.
[2022-08-28] MEDS: HYDROmorphone HCl 0.5 MG/0.5 ML SYRINGE IVPUSH (05:22)
[2022-08-28 06:55] LABS: MANUAL DIFF FLAG NO
[2022-08-28 07:00] LABS: Basophils Absolute Auto 0.1 X10*3/uL (0.0-0.2); Basophils Percent Auto 0.6 % (0-2); Eosinophils Absolute Auto 0.2 X10*3/uL (0.0-0.4); Eosinophils Percent Auto 1.5 % (0-4); Hematocrit 33.9 % (37.0-47.0); Imm Gran Abs Auto 0.05 X10*3/uL (0.00-0.03); Imm Gran Pct Auto 0.5 % (0.0-0.4); Lymphocytes Absolute Auto 1.8 X10*3/uL (1.2-4.9); Lymphocytes Percent Auto 16.1 % (20-40); Mean Corpuscular HGB Conc 32.4 g/dl (31.0-35.0); Mean Corpuscular Hemoglobin 25.3 pg (27.0-33.0); Mean Corpuscular Volume 77.9 fL (80.0-98.0); Mean Platelet Volume 8.7 fL (9.4-12.3); Monocytes Percent Auto 8.8 % (2-11); Neutrophils Percent Auto 72.5 % (45-73); Platelet Count 361 X10*3/uL (160-400); Red Blood Count 4.35 X10*6/uL (4.20-5.50); Red Cell Distribution Width 15.3 % (11.0-16.0)
[2022-08-28 07:33] LABS: Anion Gap 15 (12-20); Blood Urea Nitrogen 6 mg/dL (9-16); Carbon Dioxide 22 mmol/L (22-29); Chloride 101 mmol/L (96-108); Estimated Glomerular Filt Rate > 60; Glucose Random 98 mg/dL (60-115); Potassium 3.7 mmol/L (3.3-5.1); Sodium 134 mmol/L (135-145)
--- NOTE | 2022-08-28 08:07 | PHA.MEDREC ---
Pharmacy Consult ? Medication Reconciliation Pharmacy has completed the medication reconciliation. Patient just finished cipro 500 bid for 7 days and omeprazole 20mg daily yesterday 08/27
--- NOTE | 2022-08-28 09:48 | PM.EVENT ---
Event Note Date of Service: 08/28/22 Event Note: This is a 56-year-old female with pertinent history of dfd-jyrzygf-hphxguopt diabetes mellitus, asthma presents to the emergency department for evaluation of abdominal discomfort. Ovarian cancer with omental and peritoneal carcinomatosis, seen on abdominal imaging Consult Oncology to establish care MRI of the pelvis pending Pain management Urinary tract infection, acute Continue IV Rocephin Follow urine culture History of asthma, no acute exacerbation DuoNebs as needed Diabetes mellitus type 2, non insulin dependent Sliding scale, ADA diet DVT prophylaxis with Lovenox Attending Dr. Gonzales full code Time Spent With Patient Time: Total time managing care of this patient today ____ minutes.
[2022-08-28] MEDS: Enoxaparin Sodium 40 MG/0.4 ML SYRINGE SUBCUT (10:12)
[2022-08-28] MEDS: Morphine Sulfate 2 MG/ML CARTRIDGE 1 MG IVPUSH (12:40)
[2022-08-28 12:51] LABS: Glucose, Whole Blood 100 mg/dL (60-115)
--- NOTE | 2022-08-28 14:04 | P.CNHO_ITS ---
Subjective - Subjective Chief complaint: dominal pain and weight loss Patient: new to practice Consult date: 08/28/22 Primary Care Provider: Tiffanie Mendez MD HPI - Consult Narrative Reason for consult: mesenteric carcinomatosis Narrative: Evy Hanks is a 56 year old female working in a [email or web address] firm in [place] with a 21 day history of abdominal pain and a 26 poung weight loss over six months. CT scanning of lthe abdomen raises the question of carcinoma of the right ovary. There is a small right pleural effusion and mesenteric and abdominal wall implants.Her PCP and ;SULFIDE HEAD OPERATOR are at the [facility] Review of Systems - Constitutional Reports anorexia, Reports malaise - Eyes Reports other - ENT Reports other - Cardiovascular Reports other - Respiratory Reports dyspnea - Gastrointestinal Reports abdominal pain, Reports cramping - Genitourinary Reports absent period - Musculoskeletal Reports muscle weakness - Psychiatric Reports change in appetite PMFSH Medical History: Medical History (Last Reviewed 08/28/22 @ 03:39 by Yair Reyes MD) Asthma Diabetes Functional capacity: independent ambulation Surgical History: Surgical History (Last Reviewed 08/28/22 @ 03:39 by Yair Reyes MD) S/P appendectomy Social History: Social History (Last Reviewed 08/28/22 @ 03:39 by Yair Reyes MD) Tobacco History: Patient Tobacco Use Status: Never used Tobacco Smoked in Last 30 Days: No Substance Use History: Use of substances other than those prescribed or required for medical reasons : No Advance Directives: Advance Directives: Yes Advance Directives Information Provided: No Advance Directives on File: No Home Medications and Allergies Current Medications: Current Medications Acetaminophen (Acetaminophen 325 Mg Tablet) 650 mg PO Q6H PRN PRN Reason: Pain, Mild (Pain Scale 1-3) Albuterol Sulfate (Albuterol Sulfate 90 Mcg 8 Gm Inhaler) 2 puff INHALE Q4H PRN PRN Reason: Wheezing Dextrose (Dextrose 50 % 25 Gm/50 Ml Syringe) 25 gm IVPUSH Q15M PRN; Protocol PRN Reason: per Hypoglycemia Standing Ord. Enoxaparin Sodium (Enoxaparin Sodium 40 Mg/0.4 Ml Syringe) 40 mg SUBCUT Q24H [facility] Last Admin: 08/28/22 10:12 Dose: 40 mg Glucose (Glucose Gel 15 Gm Gel..Gram.) 15 gm PO Q15M PRN; Protocol PRN Reason: per Hypoglycemia Standing Ord. Lactated Ringer's (Lr) 1,000 mls @ 100 mls/hr IVCONT .Q10H [facility] Last Admin: 08/28/22 13:12 Dose: 100 mls/hr Ceftriaxone Sodium 1 gm/ (Sodium Chloride) 50 mls @ 100 mls/hr IV Q24H [facility] Last Infusion: 08/28/22 04:53 Dose: Infused Insulin Human Lispro (Insulin Lispro 100 Unit/Ml 3 Ml Vial) 0 unit SUBCUT QIDACHS [facility]; Protocol Last Admin: 08/28/22 12:47 Dose: Not Given Melatonin (Melatonin 3 Mg Tablet) 6 mg PO BEDTIME PRN PRN Reason: Insomnia Morphine Sulfate (Morphine Sulfate 2 Mg/Ml Cartridge) 1 mg IVPUSH Q4H PRN; Protocol PRN Reason: Pain, Mild (Pain Scale 1-3) Last Admin: 08/28/22 12:40 Dose: 1 mg Ondansetron HCl (Ondansetron Hcl 4 Mg/2 Ml Vial) 4 mg IVPUSH Q8H PRN PRN Reason: Nausea and Vomiting Pharmacy Consult (Consult Rx Perform Med Rec) 1 each MISCELLANE ONCE PRN PRN Reason: Consult order Sodium Chloride (0.9 % Sodium Chloride Flush 3 Ml Syringe) 3 ml IVFLUSH QSHIFT [facility] Last Admin: 08/28/22 07:58 Dose: Not Given Home Medications Medication Instructions Recorded Confirmed Type albuterol sulfate 90 mcg/actuation 2 puff inhalation Q4H PRN Wheezing 08/18/22 08/28/22 History aerosol inhaler dulaglutide 0.75 mg/0.5 mL 0.75 mg subcut GRANDE@1800 08/18/22 08/28/22 [facility] Allergies Allergy/AdvReac Type Severity Reaction Status Date / Time azithromycin Allergy Mild Shortness Verified 08/18/22 13:02 of Breath Physical Exam Vital signs: Vital Signs Temp 98.2 F 08/28/22 04:01 Pulse 97 08/28/22 05:20 Resp 18 08/28/22 12:40 BP 102/60 08/28/22 05:20 Pulse Ox 93 08/28/22 05:20 O2 Del Method 08/28/22 05:20 Intake & Output 08/27/22 08/28/22 08/28/22 18:59 06:59 18:59 Intake Total 1050 / 1050 1000 / 1000 Balance 1050 / 1050 1000 / 1000 Intake: Intake, IV Amount 1050 / 1050 1000 / 1000 Lactated Ringers 1,000 ml @ 999 1000 / 1000 mls/hr IV .Q1H1M [facility] Rx#: [id number] cefTRIAXone sodium 1 gm In 0.9 50 / 50 % Sodium Chloride 50 ml @ 100 mls/hr IV Q24H [facility] Rx#: [id number] Lactated Ringers 1,000 ml @ 100 1000 / 1000 mls/hr IVCONT .Q10H [facility] Rx#: [id number] Other: Weight 72.575 kg Weight 72.575 kg - Constitutional Present: no acute distress - Routine HEENT Exam Head: Present: atraumatic ENT: Present: mucous membranes moist - Routine Neck Exam Present: supple, full ROM - Routine Respiratory Exam Present: decreased breath sounds - Routine Abdominal Exam Present: diminished bowel sounds, distended, firm Hem/Onc Consult Result - Labs CBC & Chem 7: 08/28/22 06:45 08/28/22 06:45 Labs: Short CBC 08/27/22 08/28/22 Range/Units 18:45 06:45 WBC 13.6 H 11.0 H (4.8-10.8) X10*3/uL Hgb 11.9 L 11.0 L (12.0-16.0) g/dl Hct 36.8 L 33.9 L (37.0-47.0) % Plt Count 420 H 361 (160-400) X10*3/uL BMP 08/27/22 08/28/22 18:45 06:45 Sodium 130 L 134 L Potassium 3.9 3.7 Chloride 96 101 Carbon Dioxide 25 22 BUN 8 L 6 L Creatinine 0.70 0.63 Calcium 8.5 8.0 L Liver Function 08/27/22 Range/Units 18:45 Total Bilirubin 0.7 (0.0-1.0) mg/dL AST 18 (5-31) U/L ALT 11 (0-31) U/L Alkaline Phosphatase 106 (39-117) U/L Albumin 3.4 L (3.5-5.0) g/dL Urine 12/09/22 Range/Units 18:46 Urine Color Yellow Urine Appearance Clear Urine pH 6.0 (5.0-9.0) Ur Specific [place] 1.010 (1.005-1.025) Urine Protein Trace (Neg-Trace) mg/dL Urine Glucose (UA) Negative (Negative) mg/dL Assessment and Plan Patient Active problem list reviewed?: Yes (1) Ovarian cancer Status: Acute Assessment and plan: This is only a clinical diagnosis. Our recommendation is to obtain a CA 125 in the morning and have a paracentesis ;for cytology and a SULFIDE HEAD OPERATOR evaluation. will follow with you. - Time Spent With Patient Time Spent with Patient (in minutes): 20
--- NOTE | 2022-08-28 16:02 | PC.NURSE ---
nurse to call when report is ready
[2022-08-28 17:51] LABS: Glucose, Whole Blood 77 mg/dL (60-115)
[2022-08-28 20:01] LABS: Glucose, Whole Blood 169 mg/dL (60-115)
[2022-08-28] MEDS: Acetaminophen 325 MG TABLET 650 MG PO (21:31)
[2022-08-29] MEDS: Lactated Ringers 1,000 ML 100 ML IVCONT ×2 (01:25→21:03)
[2022-08-29 04:00] VITALS: BP 132/64; PULSE 80; RESP 18; TEMP 36.5; O2SAT 98
[2022-08-29] MEDS: cefTRIAXone sodium 1 GM in 0.9 % Sodium Chloride 50 ML IV (04:34)
[2022-08-29 07:48] LABS: Glucose, Whole Blood 104 mg/dL (60-115)
[2022-08-29 08:00] VITALS: BP 102/59; PULSE 85; RESP 18; TEMP 36.7; O2SAT 97
[2022-08-29] MEDS: Enoxaparin Sodium 40 MG/0.4 ML SYRINGE SUBCUT (09:33)
--- NOTE | 2022-08-29 09:55 | MHC.CM.PN ---
PEGGY DELIVERED. 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 NO SERVICES, NO DME. HAS A COPY OF HCP AT HOME. COVID VAX X4. PCP DR. JOSHUA MUÑOZ AT [facility]. DP: HOME, NO SERVICES ANTICIPATED. SISTER WILL TRANSPORT
--- NOTE | 2022-08-29 10:06 | HO.PM.IMPN ---
Subjective Subjective Date of Service: 08/29/22 Physical Exam Vital Signs: Vital Signs: Last Vital Signs Temp 98.0 F 08/29/22 08:00 Pulse 85 08/29/22 08:00 Resp 18 08/29/22 08:00 BP 102/59 L 08/29/22 08:00 Pulse Ox 97 08/29/22 08:00 O2 Del Method 08/29/22 08:00 O2 Flow Rate 2.0 08/29/22 08:00 BMI result Body Mass Index 28.3 Objective Data Active Medications Acetaminophen (Acetaminophen 325 Mg Tablet) 650 mg PO Q6H PRN PRN Reason: Pain, Mild (Pain Scale 1-3) Last Admin: 08/28/22 21:31 Dose: 650 mg Documented By: MAIN Albuterol Sulfate (Albuterol Sulfate 90 Mcg 8 Gm Inhaler) 2 puff INHALE Q4H PRN PRN Reason: Wheezing Dextrose (Dextrose 50 % 25 Gm/50 Ml Syringe) 25 gm IVPUSH Q15M PRN; Protocol PRN Reason: per Hypoglycemia Standing Ord. Enoxaparin Sodium (Enoxaparin Sodium 40 Mg/0.4 Ml Syringe) 40 mg SUBCUT Q24H [facility] Last Admin: 08/29/22 09:33 Dose: 40 mg Documented By: SMILEY Glucose (Glucose Gel 15 Gm Gel..Gram.) 15 gm PO Q15M PRN; Protocol PRN Reason: per Hypoglycemia Standing Ord. Lactated Ringer's (Lr) 1,000 mls @ 100 mls/hr IVCONT .Q10H [facility] Last Admin: 08/29/22 01:25 Dose: 100 mls/hr Documented By: MAIN Ceftriaxone Sodium 1 gm/ (Sodium Chloride) 50 mls @ 100 mls/hr IV Q24H [facility] Last Infusion: 08/29/22 05:24 Dose: 100 mls/hr Documented By: MAIN Insulin Human Lispro (Insulin Lispro 100 Unit/Ml 3 Ml Vial) 0 unit SUBCUT QIDACHS [facility]; Protocol Last Admin: 08/29/22 09:30 Dose: Not Given Documented By: SMILEY Non-Admin Reason: No Insulin Coverage Melatonin (Melatonin 3 Mg Tablet) 6 mg PO BEDTIME PRN PRN Reason: Insomnia Morphine Sulfate (Morphine Sulfate 2 Mg/Ml Cartridge) 1 mg IVPUSH Q4H PRN; Protocol PRN Reason: Pain, Mild (Pain Scale 1-3) Last Admin: 08/28/22 12:40 Dose: 1 mg Documented By: JASON Ondansetron HCl (Ondansetron Hcl 4 Mg/2 Ml Vial) 4 mg IVPUSH Q8H PRN PRN Reason: Nausea and Vomiting Pharmacy Consult (Consult Rx Perform Med Rec) 1 each MISCELLANE ONCE PRN PRN Reason: Consult order Sodium Chloride (0.9 % Sodium Chloride Flush 3 Ml Syringe) [facility] Last Admin: 08/29/22 09:35 Dose: Not Given Documented By: SMILEY Non-Admin Reason: IV Running Labs CBC & Chem 7: 08/28/22 06:45 08/28/22 06:45 Labs: Laboratory Results - last 24 hr 08/28/22 08/28/22 08/28/22 12:46 17:47 19:52 POC Glucose 100 77 169 H 08/29/22 07:41 POC Glucose 104 Microbiology Microbiology Results: Microbiology 08/27/22 23:47 Blood Culture - Preliminary Blood - Venous No growth after 24 hours. 08/27/22 23:47 Blood Culture - Preliminary Blood - Venous No growth after 24 hours. 08/27/22 19:33 Urine Culture - Preliminary Urine clean catch - Urine caicedo top No growth to date. Assessment and Plan (1) Asthma: Status: Acute Plan This is a 56-year-old female with pertinent history of guj-zddzacu-lmnhcaeqt diabetes mellitus, asthma presents to the emergency department for evaluation of abdominal discomfort. Ovarian cancer with omental and peritoneal carcinomatosis, seen on abdominal imaging Consult Oncology to establish care MRI of the pelvis pending] paracentesis for fluid cytology MANAGER DOMESTIC consult pending CA125 pending Pain management Urinary tract infection, acute Continue IV Rocephin blood and urine cx neg, complete course of abx History of asthma, no acute exacerbation DuoNebs as needed Diabetes mellitus type 2, non insulin dependent Sliding scale, ADA diet DVT prophylaxis with Lovenox Attending Dr. Gonzales full code continued hospitalization for further workup of possible ovarian cancer Time Spent With Patient Time: Total time managing care of this patient today ____ minutes. Quality Stroke Does the patient have a stroke diagnosis?: No VTE Prior VTE?: No VTE Risk Level:: Medical - moderate - high VTE Device Contraindication: Treatment Not Indicated VTE Drug Contraindication: N/A - Med Ordered
--- NOTE | 2022-08-29 10:36 | PM.HEMONCPN ---
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 CT scanning of lthe abdomen raises the question of carcinoma of the right ovary. There is a small right pleural effusion and mesenteric and abdominal wall implants.Her PCP and ;PATIENT SAFETY ATTENDANT are at the [facility]. She has continued pain in the low back. The CA 125 is done and pending. She is aware of the CT findings. Recommend paracentesis or needle biopsy of an implant to obtain histology. Will await PATIENT SAFETY ATTENDANT evaluation. Review of Systems - Constitutional Reports anorexia - Eyes Reports sensitivity to light - Cardiovascular Reports shortness of breath - Respiratory Reports dyspnea on exertion - Gastrointestinal Reports abdominal pain - Genitourinary Reports other - Musculoskeletal Reports decreased muscle mass [facility] Medical History: Medical History (Last Reviewed 08/28/22 @ 03:39 by Yair Reyes MD) Asthma Diabetes Functional capacity: independent ambulation Surgical History: Surgical History (Last Reviewed 08/28/22 @ 03:39 by Yair Reyes MD) S/P appendectomy Social History: Social History (Last Reviewed 08/28/22 @ 03:39 by Yair Reyes MD) Living Situation History: Household Members: None Housing: Condominium Do you presently have visiting nurse or other home services: No Tobacco History: Patient Tobacco Use Status: Never used Tobacco Advance Directives: Advance Directives Date on File: 08/28/22 Occupation Assessmet: service: No Current occupational status: employed Home Medications and Allergies Current Medications: Current Medications Acetaminophen (Acetaminophen 325 Mg Tablet) 650 mg PO Q6H PRN PRN Reason: Pain, Mild (Pain Scale 1-3) Last Admin: 08/28/22 21:31 Dose: 650 mg Albuterol Sulfate (Albuterol Sulfate 90 Mcg 8 Gm Inhaler) 2 puff INHALE Q4H PRN PRN Reason: Wheezing Dextrose (Dextrose 50 % 25 Gm/50 Ml Syringe) 25 gm IVPUSH Q15M PRN; Protocol PRN Reason: per Hypoglycemia Standing Ord. Enoxaparin Sodium (Enoxaparin Sodium 40 Mg/0.4 Ml Syringe) 40 mg SUBCUT Q24H JAY JAY Last Admin: 08/29/22 09:33 Dose: 40 mg Glucose (Glucose Gel 15 Gm Gel..Gram.) 15 gm PO Q15M PRN; Protocol PRN Reason: per Hypoglycemia Standing Ord. Lactated Ringer's (Lr) 1,000 mls @ 100 mls/hr IVCONT .Q10H [facility] Last Admin: 08/29/22 01:25 Dose: 100 mls/hr Ceftriaxone Sodium 1 gm/ (Sodium Chloride) 50 mls @ 100 mls/hr IV Q24H [facility] Last Infusion: 08/29/22 05:24 Dose: Infused Insulin Human Lispro (Insulin Lispro 100 Unit/Ml 3 Ml Vial) 0 unit SUBCUT QIDACHS [facility]; Protocol Last Admin: 08/29/22 09:30 Dose: Not Given Melatonin (Melatonin 3 Mg Tablet) 6 mg PO BEDTIME PRN PRN Reason: Insomnia Morphine Sulfate (Morphine Sulfate 2 Mg/Ml Cartridge) 1 mg IVPUSH Q4H PRN; Protocol PRN Reason: Pain, Mild (Pain Scale 1-3) Last Admin: 08/28/22 12:40 Dose: 1 mg Ondansetron HCl (Ondansetron Hcl 4 Mg/2 Ml Vial) 4 mg IVPUSH Q8H PRN PRN Reason: Nausea and Vomiting Pharmacy Consult (Consult Rx Perform Med Rec) 1 each MISCELLANE ONCE PRN PRN Reason: Consult order Sodium Chloride (0.9 % Sodium Chloride Flush 3 Ml Syringe) 3 ml IVFLUSH QSHIFT [facility] Last Admin: 08/29/22 09:35 Dose: Not Given Home Medications Medication Instructions Recorded Confirmed Type albuterol sulfate 90 mcg/actuation 2 puff inhalation Q4H PRN Wheezing 08/18/22 08/28/22 History aerosol inhaler dulaglutide 0.75 mg/0.5 mL 0.75 mg subcut GRANDE@1800 08/18/22 08/28/22 [facility] Allergies Allergy/AdvReac Type Severity Reaction Status Date / Time azithromycin Allergy Mild Shortness Verified 08/18/22 13:02 of Breath Exam Vital signs: Vital Signs Temp 98.0 F 08/29/22 08:00 Pulse 85 08/29/22 08:00 Resp 18 08/29/22 08:00 BP 102/59 L 08/29/22 08:00 Pulse Ox 97 08/29/22 08:00 O2 Del Method 08/29/22 08:00 O2 Flow Rate 2.0 08/29/22 08:00 Intake & Output 08/28/22 08/29/22 08/29/22 18:59 06:59 18:59 Intake Total 1000 / 2800 1800 / 2800 Balance 1000 / 2800 1800 / 2800 Intake: Intake, Oral Amount 750 / 750 Intake, IV Amount 1000 / 2050 1050 / 2050 cefTRIAXone sodium 1 gm In 0.9 50 / 50 % Sodium Chloride 50 ml @ 100 mls/hr IV Q24H JAY JAY Rx#: [id number] Lactated Ringers 1,000 ml @ 100 1000 / 2000 1000 / 2000 mls/hr IVCONT .Q10H [facility] Rx#: [id number] Other: Meal Refused No NPO No Dinner % Eaten 100% Number of Unmeasured Voids 2 Last Bowel Movement 08/28/22 Weight 72.575 kg BMI result Body Mass Index 28.3 - Constitutional Present: no acute distress - Routine HEENT Exam Head: Present: atraumatic - Routine Respiratory Exam Present: decreased breath sounds - Routine Abdominal Exam Present: diminished bowel sounds, distended, firm Data - Labs CBC & Chem 7: 08/28/22 06:45 08/28/22 06:45 Labs: 08/27/22 18:45 Complete Blood Count Auto Diff Stat Comprehensive Met. Panel Stat Lipase Stat 08/27/22 18:46 UA ClnCatch+Micro w/rflx Cult Stat 08/27/22 23:27 Morphine Sulfate 4 mg IVPUSH ONCE ONE ondansetron HCL [Zofran] 4 mg IVPUSH ONCE ONE 08/27/22 23:30 Lactated Ringers [Lr] 1,000 ml IV 999 mls/hr 08/27/22 23:47 Lactic Acid Stat 08/28/22 00:00 CT abdomen pelvis w IV con Stat 08/28/22 00:52 iohexoL 350 MG/ML [Omnipaque 350 MG/ML] 85 ml IV ONCE ONE 08/28/22 01:49 Morphine Sulfate 4 mg IVPUSH ONCE ONE 08/28/22 02:34 Intake and Output Q8HR Intake and Output Q8HR Vital Signs QSHIFT 08/28/22 02:39 COVID-19 ID NOW ([place]) Stat 08/28/22 04:03 cefTRIAXone sodium [Rocephin] 1 gm .ROUTE .STK-MED ONE 08/28/22 05:08 HYDROmorphone HCl [Dilaudid] 0.5 mg IVPUSH ONCE ONE 08/28/22 06:45 Basic Metabolic Panel AM Complete Blood Count Auto Diff AM 08/28/22 12:46 Glucose, Whole Blood Routine 08/28/22 13:32 Vital Signs Q4H 08/28/22 17:47 Glucose, Whole Blood Routine 08/28/22 19:52 Glucose, Whole Blood Routine 08/29/22 04:25 cefTRIAXone sodium [Rocephin] 1 gm .ROUTE .STK-MED ONE 08/29/22 07:41 Glucose, Whole Blood Routine Laboratory Last Values WBC 11.0 X10*3/uL (4.8-10.8) H 08/28/22 06:45 RBC 4.35 X10*6/uL (4.20-5.50) 08/28/22 06:45 Hgb 11.0 g/dl (12.0-16.0) L 08/28/22 06:45 Hct 33.9 % (37.0-47.0) L 08/28/22 06:45 MCV 77.9 fL (80.0-98.0) L 08/28/22 06:45 MCH 25.3 pg (27.0-33.0) L 08/28/22 06:45 MCHC 32.4 g/dl (31.0-35.0) 08/28/22 06:45 RDW 15.3 % (11.0-16.0) 08/28/22 06:45 Plt Count 361 X10*3/uL (160-400) 08/28/22 06:45 MPV 8.7 fL (9.4-12.3) L 08/28/22 06:45 Immature Gran % (Auto) 0.5 % (0.0-0.4) H 08/28/22 06:45 Neut % (Auto) 72.5 % (45-73) 08/28/22 06:45 Lymph % (Auto) 16.1 % (20-40) L 08/28/22 06:45 [place] % (Auto) 8.8 % (2-11) 08/28/22 06:45 Eos % (Auto) 1.5 % (0-4) 08/28/22 06:45 Baso % (Auto) 0.6 % (0-2) 08/28/22 06:45 Lymph # (Auto) 1.8 X10*3/uL (1.2-4.9) 08/28/22 06:45 [place] # (Auto) 1.0 X10*3/uL (0.1-1.2) 08/28/22 06:45 Eos # (Auto) 0.2 X10*3/uL (0.0-0.4) 08/28/22 06:45 Baso # (Auto) 0.1 X10*3/uL (0.0-0.2) 08/28/22 06:45 Abs Immat Gran (auto) 0.05 X10*3/uL (0.00-0.03) H 08/28/22 06:45 Absolute Neuts (auto) 8.0 x10*3/uL (2.0-8.3) 08/28/22 06:45 Absolute Nucleated RBC 0.000 X10*3/uL (0.0-0.012) 08/28/22 06:45 Nucleated RBC % (auto) 0.0 /100WBC (0.0-0.2) 08/28/22 06:45 Sodium 134 mmol/L (135-145) L 08/28/22 06:45 Potassium 3.7 mmol/L (3.3-5.1) 08/28/22 06:45 Chloride 101 mmol/L (96-108) 08/28/22 06:45 Carbon Dioxide 22 mmol/L (22-29) 08/28/22 06:45 Anion Gap 15 (12-20) 08/28/22 06:45 BUN 6 mg/dL (9-16) L 08/28/22 06:45 Creatinine 0.63 mg/dL (0.5-1.4) 08/28/22 06:45 Estim Creat Clear Calc 94.0 08/28/22 06:45 Estimated GFR > 60 08/28/22 06:45 POC Glucose 104 mg/dL (60-115) 08/29/22 07:41 Random Glucose 98 mg/dL (60-115) 08/28/22 06:45 Lactic Acid 0.8 mmol/L (0.5-2.0) 08/27/22 23:47 Calcium 8.0 mg/dL (8.4-10.2) L 08/28/22 06:45 Total Bilirubin 0.7 mg/dL (0.0-1.0) 08/27/22 18:45 AST 18 U/L (5-31) 08/27/22 18:45 ALT 11 U/L (0-31) 08/27/22 18:45 Alkaline Phosphatase 106 U/L (39-117) 08/27/22 18:45 Total Protein 6.1 g/dL (6.5-8.0) L 08/27/22 18:45 Albumin 3.4 g/dL (3.5-5.0) L 08/27/22 18:45 Lipase 16 U/L (8-78) 08/27/22 18:45 Urine Color Yellow 08/27/22 18:46 Urine Appearance Clear 08/27/22 18:46 Urine pH 6.0 (5.0-9.0) 08/27/22 18:46 Ur Specific [place] 1.010 (1.005-1.025) 08/27/22 18:46 Urine Protein Trace mg/dL (Neg-Trace) 08/27/22 18:46 Urine Glucose (UA) Negative mg/dL (Negative) 08/27/22 18:46 Urine Ketones 40 mg/dL (Negative) 08/27/22 18:46 Urine Blood Negative (Negative) 08/27/22 18:46 Urine Nitrite Negative (Negative) 08/27/22 18:46 Ur Leukocyte Esterase Moderate (2+) (Negative) H 08/27/22 18:46 Urine RBC 0-2 /HPF (0-2) 08/27/22 18:46 Urine WBC 21-50 /HPF (0-5) H 08/27/22 18:46 Ur Squamous Epith Cells 6-10 /HPF (0-2) 08/27/22 18:46 Urine Bacteria 1+ (None Seen) 08/27/22 18:46 Hyaline Casts 0-2 /LPF (0-2) 08/27/22 18:46 COVID-19 (TRACY) Negative (Negative) 08/28/22 02:39 COVID-19 Clin Com See Note 08/28/22 02:39 - Imaging Radiologist's impression: ITS Impressions Abdomen/Pelvis CT 08/28/22 00:45 IMPRESSION: *Findings suspicious for ovarian cancer. Omental and peritoneal carcinomatosis is present along with ascites which is suspicious for malignant ascites. Omental carcinomatosis extends contiguously to the right adnexal region obscuring visualization of the right ovary but is suspicious for a right ovarian neoplasm. The left ovary is not well visualized and soft tissue density is present in the left adnexal region over an approximate 3 cm diameter region which could represent tumor. A peritoneal metastasis measuring 2.7 cm is present in the left upper abdominal quadrant which may therefore meet criteria for stage IIIc staging. As clinically indicated, consider further evaluation with pelvic MRI to more specifically assess the ovaries which are not distinctly visualized on the current examination. *Partially visualized small left pleural effusion and left lower lobe atelectasis. *Partially visualized small pericardial effusion measuring 5 mm in width. Assessment and Plan Patient Active problem list reviewed?: Yes (1) Ovarian cancer Status: Acute Assessment and plan: This is only a clinical diagnosis. Our recommendation is to obtain a CA 125 in the morning and have a paracentesis ;for cytology and a PATIENT SAFETY ATTENDANT evaluation. will follow with you.She is stable this morning and understands her situation. - Time Spent With Patient Time Spent with Patient (in minutes): 15
[2022-08-29 11:21] LABS: Glucose, Whole Blood 181 mg/dL (60-115)
[2022-08-29] MEDS: Insulin Lispro 100 UNIT/ML 3 ML VIAL SUBCUT ×2 (12:15→21:03)
[2022-08-29 14:55] VITALS: BP 117/64; PULSE 104; RESP 20; TEMP 36.9; O2SAT 97
[2022-08-29 15:37] LABS: Glucose, Whole Blood 113 mg/dL (60-115)
[2022-08-29 19:02] VITALS: BP 118/70; PULSE 90; RESP 18; TEMP 36.9; O2SAT 97
[2022-08-29 19:40] LABS: Glucose, Whole Blood 165 mg/dL (60-115)
[2022-08-30 03:09] VITALS: BP 103/55; PULSE 90; RESP 18; TEMP 36.4; O2SAT 94
[2022-08-30] MEDS: cefTRIAXone sodium 1 GM in 0.9 % Sodium Chloride 50 ML IV (05:00)
[2022-08-30 07:12] VITALS: BP 105/58; PULSE 92; RESP 18; TEMP 36.6; O2SAT 95
[2022-08-30 07:25] LABS: Glucose, Whole Blood 115 mg/dL (60-115)
[2022-08-30] MEDS: Enoxaparin Sodium 40 MG/0.4 ML SYRINGE SUBCUT (08:11)
[2022-08-30] MEDS: 0.9 % Sodium Chloride Flush 3 ML SYRINGE IVFLUSH (08:12)
[2022-08-30] MEDS: Acetaminophen 325 MG TABLET 650 MG PO (08:17)
[2022-08-30 09:17] LABS: INTERNATIONAL NORM RATIO 1.3 (0.9-1.1); Prothrombin Time 15.3 SEC (10.0-13.1)
--- NOTE | 2022-08-30 09:48 | PM.GYNCN ---
TEAR DOWN WORKER - CN: HPI Data of Consult Consult date: 08/28/22 Requesting Physician: Harika Root NP Primary Care Provider: Tiffanie Mendez MD Consult Narrative Narrative: I was consulted on Evy Hanks who is a 56 year old female who presented to the emergency room few days ago complaining of few weeks history of abdominal pain, increasing abdominal girth, early satiety and 26 lb weight loss, no vaginal bleeding or any other symptoms cc:: CC: Harika Root NP [facility] Past Medical History Medical History Asthma Diabetes Functional capacity: independent ambulation Surgical History Surgical History S/P appendectomy Social History Social History Household Members: None [facility] Do you presently have visiting nurse or other home services: No Patient Tobacco Use Status: Never used Tobacco Advance Directives Date on File: 08/28/22 service: No Current occupational status: employed Meds Allergies Allergy/AdvReac Type Severity Reaction Status Date / Time azithromycin Allergy Mild Shortness Verified 08/18/22 13:02 of Breath Active Medications: Current Medications Acetaminophen (Acetaminophen 325 Mg Tablet) 650 mg PO Q6H PRN PRN Reason: Pain, Mild (Pain Scale 1-3) Last Admin: 08/30/22 08:17 Dose: 650 mg Albuterol Sulfate (Albuterol Sulfate 90 Mcg 8 Gm Inhaler) 2 puff INHALE Q4H PRN PRN Reason: Wheezing Dextrose (Dextrose 50 % 25 Gm/50 Ml Syringe) 25 gm IVPUSH Q15M PRN; Protocol PRN Reason: per Hypoglycemia Standing Ord. Enoxaparin Sodium (Enoxaparin Sodium 40 Mg/0.4 Ml Syringe) 40 mg SUBCUT Q24H JAY JAY Last Admin: 08/30/22 08:11 Dose: 40 mg Glucose (Glucose Gel 15 Gm Gel..Gram.) 15 gm PO Q15M PRN; Protocol PRN Reason: per Hypoglycemia Standing Ord. Ceftriaxone Sodium 1 gm/ (Sodium Chloride) 50 mls @ 100 mls/hr IV Q24H JAY JAY Last Infusion: 08/30/22 05:45 Dose: Infused Insulin Human Lispro (Insulin Lispro 100 Unit/Ml 3 Ml Vial) 0 unit SUBCUT QIDACHS [facility]; Protocol Last Admin: 08/30/22 07:32 Dose: Not Given Melatonin (Melatonin 3 Mg Tablet) 6 mg PO BEDTIME PRN PRN Reason: Insomnia Morphine Sulfate (Morphine Sulfate 2 Mg/Ml Cartridge) 1 mg IVPUSH Q4H PRN; Protocol PRN Reason: Pain, Mild (Pain Scale 1-3) Last Admin: 08/28/22 12:40 Dose: 1 mg Ondansetron HCl (Ondansetron Hcl 4 Mg/2 Ml Vial) 4 mg IVPUSH Q8H PRN PRN Reason: Nausea and Vomiting Pharmacy Consult (Consult Rx Perform Med Rec) 1 each MISCELLANE ONCE PRN PRN Reason: Consult order Sodium Chloride (0.9 % Sodium Chloride Flush 3 Ml Syringe) [facility] Last Admin: 08/30/22 08:12 Dose: 3 ml Home Medications Medication Instructions Recorded Confirmed Last Taken Type albuterol sulfate 90 mcg/actuation 2 puff inhalation Q4H PRN Wheezing 08/18/22 08/28/22 Unknown History aerosol inhaler dulaglutide 0.75 mg/0.5 mL 0.75 mg subcut GRANDE@1800 08/18/22 08/28/22 08/22/22 [facility] [employer] WORKER Physical Exam Vitals Vital signs: Temp Pulse Resp BP Pulse Ox O2 Del Method O2 Flow Rate 98 F 92 18 105/58 L 95 2 08/30/22 07:12 08/30/22 07:12 08/30/22 07:12 08/30/22 07:12 08/30/22 07:12 08/30/22 07:12 08/30/22 07:12 BMI result Body Mass Index 28.3 Abdomen Auscultation/Inspection/Palpation: Bowel sounds diminished or absent, Distended and Other (Abdominal mass felt) Female Genitalia (Pelvic) Bladder/Urethra: Normal meatus Vulva: No lesions Cervix: Grossly normal Adnexa/Parametria: Adnexal Tenderness: None, Adnexal Mass: Bilateral and Parametrial Mass: None TEAR DOWN WORKER - Results Labs CBC & Chem 7: 08/28/22 06:45 08/28/22 06:45 Labs: Urine 08/27/22 Range/Units 18:46 Urine Color Yellow Urine Appearance Clear Urine pH 6.0 (5.0-9.0) Ur Specific [place] 1.010 (1.005-1.025) Urine Protein Trace (Neg-Trace) mg/dL Urine Glucose (UA) Negative (Negative) mg/dL Imaging CT scan - pelvis: Radiologist's impression: ITS Impressions Abdomen/Pelvis CT 08/28/22 00:45 IMPRESSION: *Findings suspicious for ovarian cancer. Omental and peritoneal carcinomatosis is present along with ascites which is suspicious for malignant ascites. Omental carcinomatosis extends contiguously to the right adnexal region obscuring visualization of the right ovary but is suspicious for a right ovarian neoplasm. The left ovary is not well visualized and soft tissue density is present in the left adnexal region over an approximate 3 cm diameter region which could represent tumor. A peritoneal metastasis measuring 2.7 cm is present in the left upper abdominal quadrant which may therefore meet criteria for stage IIIc staging. As clinically indicated, consider further evaluation with pelvic MRI to more specifically assess the ovaries which are not distinctly visualized on the current examination. *Partially visualized small left pleural effusion and left lower lobe atelectasis. *Partially visualized small pericardial effusion measuring 5 mm in width. Assessment and Plan (1) Ovarian cancer: Status: Acute Plan Discussed with the patient her clinical presentation very suspicious of ovarian cancer, omental caking and ascites. CA 125 sent still pending. The patient scheduled for abdominal fluid aspiration be sent for cytology. Discussed with patient the management of ovarian cancer, surgical staging including debulking surgery, hysterectomy bilateral being oophorectomy , pelvic and and para-aortic lymph nodes dissection , and depending on the surgical stage, with possible additional chemotherapy postoperatively. Recommend chest x-ray, will refer to [facility] as soon as possible for further management. Time Spent With Patient Time: Total time managing care of this patient today ____ minutes.
[2022-08-30 11:28] LABS: Glucose, Whole Blood 136 mg/dL (60-115)
--- NOTE | 2022-08-30 13:29 | PM.DS ---
DS: Providers Provider Date of Service: 08/30/22 Date of admission: 08/28/22 02:34 Primary care physician: Tiffanie Mendez MD Consults: 08/28/22 02:31 Consult to Hematology / Oncology Routine Consulting Provider: Danny Pratt Reason for consultation: Ovarian cancer 08/28/22 13:33 Consult to Obstetrics / Gynecology Routine Consulting Provider: Jori Smith Reason for consultation: Ovarian mass [facility]: Harika Root DS: Diagnosis Discharge Diagnosis (1) Ovarian cancer: Status: Acute DS: Summary Hospital Course Hospital Course: History and physical as per admitting provider This is a 56-year-old female with pertinent history of [id number] diabetes mellitus, asthma presents to the emergency department for evaluation of abdominal discomfort.? Patient states her abdominal pain is generalized and started about 2 weeks ago.? Patient states she has had reduced p.o. intake and difficulty with ambulation due to the pain. ? Endorses associated nausea and nonbloody emesis. No relieving factors.? Also lost 26 lb in the last 4 months.? No personal history of cancer.? No tobacco smoking.? Does endorse urinary hesitancy.? She denies fever, chills, chest discomfort, palpitations, shortness of breath, changes in bowel habits. In the emergency department, imaging concerning for ovarian cancer with omental and peritoneal carcinomatosis . Ovarian cancer with omental and peritoneal carcinomatosis, seen on abdominal imaging MRI of the pelvis pending along with cytology from paracentesis, follow up outpatient COFFEE SHOP ATTENDANT and oncologist have seen and evaluated the patient, plan for outpatient follow-up with [facility] of [facility]ology Oncology CA125 still pending Urinary tract infection, acute Treated with IV Rocephin blood and urine cx neg, complete course of abx History of asthma, no acute exacerbation Treated with duonebs Diabetes mellitus type 2, non insulin dependent continue home medications Time Spent with Patient Time attestation: Total time managing care of this patient today ____ minutes. Discharge coordination time: Greater than 30 minutes Quality: Safe Use of Opioids Does Pt have an Active Cancer Diagnosis on the Problem List?: No Quality: Stroke Does the patient have a stroke diagnosis?: No Physical Exam Vital Signs: Vital Signs: Last Vital Signs Temp 98 F 08/30/22 07:12 Pulse 92 08/30/22 07:12 Resp 18 08/30/22 07:12 BP 105/58 L 08/30/22 07:12 Pulse Ox 95 08/30/22 07:12 O2 Del Method 08/30/22 07:12 O2 Flow Rate 2 08/30/22 07:12 BMI result Body Mass Index 28.3 Appearing in no acute distress head is normocephalic atraumatic eyes pupils are PERRLA sclera is anicteric mouth throat mucous membranes are intact and moist neck is supple no lymphadenopathy, no JVD noted lung sounds are clear to auscultation heart regular rate rhythm, clear S1, S2 positive bowel sounds, abdomen is soft, nontender neuro patient is alert x3, no focal deficits DS: Data Data Completed and Pending Pending studies at discharge: Pending at discharge 08/30/22 08:00 Cytology [PTH] Routine Labs on day of discharge: Laboratory Results - last 24 hr 08/29/22 08/29/22 08/30/22 14:57 19:05 07:12 PT INR POC Glucose 113 165 H 115 08/30/22 08/30/22 09:04 11:24 PT 15.3 H INR 1.3 H POC Glucose 136 H Preliminary micro results at discharge 08/27/22 23:47 Blood Culture - Preliminary Blood - Venous No growth after 48 hours. 08/27/22 23:47 Blood Culture - Preliminary Blood - Venous No growth after 48 hours. 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 Referrals: Tiffanie Mendez MD [Primary Care Provider] - 1 Week Jori Smith MD [Physician] - 1 Week Discharge Medications: Continued Trulicity 0.75 mg/0.5 mL pen injector 0.75 mg subcut GRANDE@1800 albuterol sulfate 90 mcg/actuation HFA aerosol inhaler 2 puff inhalation Q4H PRN (Reason: Wheezing) Discharge Orders: Discharge Order (Routine); Ordered 08/30/22 Ordered By: Harika Root Diet: Advance to usual diet Activity on Discharge: As tolerated Stand Alone Forms: Patient Portal Discharge page Care Plan Goals: Follow-up with gynecological oncology Health Concerns: Ovarian cancer Plan of Treatment: Follow-up with Dr. Smith for referral to gynecological oncology Take all medications as prescribed Assessment: See discharge summary
[2022-08-30 13:58] VITALS: BMI 28.3
--- NOTE | 2022-08-30 14:04 | MHC.CLN ---
NUTRITION PATIENT WITH SIGNIFICANT WEIGHT LOSS X 4 MONTHS. REPORTS POOR INTAKE/APPETITE. ADDING ENSURE TID PER CONVERSATION WITH PATIENT. PROVIDES ADDITIONAL 1050 KCALS, 60 G PROTEIN.
--- NOTE | 2022-08-30 15:03 | HO.RADPN ---
RADIOLOGY Narrative Narrative: RLQ paracentesis performed using 5 fr catheter. 3.3 L clear yellow fluid removed. Diagnostic specimen sent
[2022-08-30] MEDS: Lidocaine HCl 1 % MPF 5 ML VIAL 10 ML SUBCUT (15:25)
[2022-08-30 15:32] VITALS: BP 114/66; PULSE 104
[2022-08-30 16:02] VITALS: BP 103/62; PULSE 98
[2022-08-30 16:30] VITALS: BP 103/63; PULSE 103
[2022-08-30 16:32] LABS: Glucose, Whole Blood 140 mg/dL (60-115)
[2022-08-30 17:00] VITALS: BP 117/56; PULSE 109
[2022-08-31 08:57] LABS: CA-125 322 U/mL (<35)
== END 2022-08-30 17:29 | disposition home or self-care (01) ==
LOC: HO.ED 08-28 01:59 → HO.EDOVER 08-28 02:42 → HO.S3 08-28 15:36
PROVIDERS: Physician Assistant; Radiology Diagnostic Radiology; Admitting Provider Student in an Organized Health Care Education/Training Program; Emergency Provider Emergency Medicine; PCP Internal Medicine; Visit Provider Nurse Practitioner Acute Care
DX: R10.2 Pelvic and perineal pain (principal); C56.9 Malignant neoplasm of unspecified ovary; C78.6 Secondary malignant neoplasm of retroperitoneum and peritoneum; E11.9 Type 2 diabetes mellitus without complications; J45.909 Unspecified asthma, uncomplicated; R18.8 Other ascites; Z20.822 Contact with and (suspected) exposure to COVID-19; Z79.899 Other long term (current) drug therapy
CPT/HCPCS: 36415; 49083; 71045; 72197; 74177; 80048; 80053; 81001; 82947; 83605; 83690; 85025; 85610; 86304; 87040; 87086; 87635; 88112; 96365; 96366; 96372; 96375; 96376; 99218; 99284; A9585; J0696; J1170; J1650; J2270; J2405; Q9967